=== PATIENT | male | born 1980 | race Caucasian/White ===

== ENCOUNTER 2021-07-18 12:41 | Emergency (ER) | payer BC, SELFPAY ==
--- NOTE | 2021-07-18 12:48 | ED.SKABFB ---
HPI - Skin/Abscess/Foreign Bdy General Chief complaint: Skin/Abscess/Foreign Body Stated complaint: pos infected finger Time Seen by Provider: 07/18/21 12:48 Source: patient and RN notes reviewed History of Present Illness HPI narrative: Patient is a 40-year-old male who presents the urgent care with complaints of a possible finger infection. Patient states on Sunday he developed the infection on the middle finger and did drain the area. Patient states that typically it goes away but it is now under the fingernail . Patient states is very painful. States that he has been using [id number] pain medication for comfort. No other acute complaints. Denies of, chills, nausea, vomiting. No acute distress noted. Patient aware of the plan of care. Some parts of this dictation were generated by voice recognition software and may contain typographical and/or grammatical inaccuracies. Related Data Allergies Allergy/AdvReac Type Severity Reaction Status Date / Time No Known Allergies Allergy Unverified 06/04/15 15:32 Review of Systems Review of Systems: CONSTITUTIONAL: Denies fever, chills, or sweats. EYES: Denies visual changes, redness, or discharge. ENT: Denies rhinorrhea, congestion, sore throat, or otalgia. CARDIOVASCULAR: Denies chest pain, palpitations, or edema. RESPIRATORY: Denies cough or dyspnea. GASTROINTESTINAL: Denies abdominal pain, nausea, vomiting, or diarrhea. GENITOURINARY: Denies dysuria or hematuria. SKIN: Reports of a possible finger infection to the left middle finger MUSCULOSKELETAL: Denies back pain, joint pain, or myalgia. NEUROLOGIC: Denies headache, numbness, or weakness. All other systems reviewed are negative, except as documented in HPI. [facility] Family History Family History (Updated 06/02/15 @ 10:13 by DOCTOR UNKNOWN) Father Acute myocardial infarction Comments At the time of my signature, I reviewed and agree with the nursing past medical, surgical, social, and family history. There is no relevant family history pertinent to the patient complaint. Exam Narrative: GENERAL: This is a well-nourished, well-developed patient, in no apparent distress. HEAD: normocephalic, atraumatic. EYES: PERRL. Sclera clear/white. Vision is grossly intact. EARS: External ears normal NOSE: External nose normal with no obvious nasal discharge, nares without redness, no rhinorrhea. THROAT: Mucous membranes moist NECK: Neck supple CARDIOVASCULAR: Regular rate and rhythm without murmurs, gallops, or rubs. RESPIRATORY: Clear to auscultation. Breath sounds equal bilaterally. No wheezes, rales, or rhonchi. SKIN: Very small draining paronychia noted to the radial aspect of the left middle finger with moderate tenderness. Warm, intact with no suspicious lesions or rash, good texture and turgor. NEURO: awake, alert, and oriented to person, place and time. There were no obvious focal neurologic abnormalities. EXTREMITIES: No clubbing, cyanosis, or edema. Course Vital Signs Vital signs: Vital Signs Temperature 97.4 F L 07/18/21 12:51 Pulse Rate 68 07/18/21 12:51 Respiratory Rate 16 07/18/21 12:51 Blood Pressure 138/80 07/18/21 12:51 Pulse Oximetry 100 07/18/21 12:51 Temperature 97.4 F L 07/18/21 12:51 Pulse Rate 68 07/18/21 12:51 Respiratory Rate 16 07/18/21 12:51 Blood Pressure 138/80 07/18/21 12:51 Pulse Oximetry 100 07/18/21 12:51 Reviewed MDM - Skin/Abscess/Foreign Bdy MDM Narrative Medical decision making narrative: Advised the patient to complete oral antibiotic regimen as prescribed. Be sure to eat and drink with the medication. It is important to cover the area if at risk of being soiled or while you are at work. May use Neosporin to the finger. Use plain Dial soap and water soaks twice a day. If you develop any increase in symptoms associated with redness, swelling, fever, nausea, vomiting?go to the emergency room. Follow-up with your PCP within 2 to 5 days or f
[2021-07-18 12:51] VITALS: BP 138/80; PULSE 68; RESP 16; TEMP 36.3; O2SAT 100
== END 2021-07-18 13:10 | disposition home or self-care (01) ==
PROVIDERS: Emergency Provider Nurse Practitioner Family; PCP Internal Medicine
DX: L03.012 Cellulitis of left finger (principal)
CPT/HCPCS: 99203; G0463